=== PATIENT | male | born 1950 | race Caucasian/White ===

== ENCOUNTER 2018-08-02 06:12 | Inpatient (IN) ==
[2018-08-02] MEDS ORDERED: Albuterol 2.5 MG/3 ML NEBULIZER IH ONE (06:32)
[2018-08-02] MEDS ORDERED: CeFAZolin Syr 3,000MG/30 ML 3,000 MG/30 ML SYRINGE IVPB ONE (06:32)
[2018-08-02] MEDS ORDERED: Ringers Solution, Lactated 1,000 ML IVC SCH (06:45)
[2018-08-02] MEDS ORDERED: Lidocaine -MPF 4% 5 ML AMPUL ONE (07:08)
[2018-08-02] MEDS ORDERED: *HR* Propofol 200 MG/20 ML VIAL IVP ONE ×2 (07:15→08:17)
[2018-08-02] MEDS ORDERED: *HR* FentaNYL (PF) 100 MCG/2 ML VIAL ONE (07:15)
[2018-08-02] MEDS ORDERED: *HR* Methadone 10 MG TABLET PO ONE (07:16)
[2018-08-02] MEDS ORDERED: Lidocaine -MPF 2% 2 ML VIAL ONE (07:19)
[2018-08-02] MEDS ORDERED: *HR* Succinylcholine 200 MG/10 ML VIAL IVP ONE (07:19)
[2018-08-02] MEDS ORDERED: Ondansetron 4 MG/2 ML VIAL ONE (07:19)
[2018-08-02] MEDS ORDERED: *HR* Rocuronium Bromide 50 MG/5 ML VIAL ONE (07:19)
[2018-08-02] MEDS ORDERED: Dexamethasone 4 MG/ML VIAL ONE (07:19)
--- NOTE | 2018-08-02 07:19 | Anesthesia Evaluation PreOp ---
Date of Encounter: 08/02/18 Time of Encounter: 07:17 - Past History Planned Operation: PLIF L3-L5 Cardiac History: HTN Pulmonary History: Smoker, COPD, WANG Dx (BIPAP) HERB DOCTOR History: Denies Any Significant HX Other Medical History: Other (MORBID OBESITY) Anesthesia History: Past Anesthesia, Problems (BRONCHOSPASM POST OPERATIVE) Alcohol Use: heavy Drug use: none Medications and Allergies Aspirin 81 mg PO DAILY 11/30/16 [History] Calcium Carbonate/Vitamin D3 [Calcium 500 mg Chewable Tablet] 1 each PO DAILY [History] Losartan/HCTZ [Hyzaar 50-12.5 Tablet] 1 each PO DAILY 11/30/16 [History] Multivitamin [Multivitamins] 1 each PO DAILY 11/30/16 [History] Potassium 99 mg PO DAILY 11/30/16 [History] Trazodone HCl 150 mg PO HS 11/30/16 [History] 3 Allergy/AdvReac Type Severity Reaction Status Date / Time Sulfa (Sulfonamide Allergy Mild Hives Verified 08/02/18 07:19 Antibiotics) Tetracycline Allergy Mild Hives Verified 08/02/18 07:19 escitalopram [From Lexapro] AdvReac HALUCINATIO Verified 08/02/18 07:19 N Iodinated Contrast- Oral and AdvReac Rash Verified 08/02/18 07:19 IV Dye [Iodinated Contrast Media - IV Dye] venlafaxine [From Effexor] AdvReac Hallucinati Verified 08/02/18 07:19 ng - Meds/Allergy Pre-op Review Medications Reviewed: Yes Allergies Reviewed: Yes Beta Blockers on Current Med List: No Anesthesia Results - Labs Laboratory Last Values WBC 6.2 K/mcL (4.3-11.1) 07/11/18 11:22 RBC 5.12 M/mcL (4.19-5.50) 07/11/18 11:22 Hgb 17.7 g/dL (12.9-16.9) H 07/11/18 11:22 Hct 52.0 % (37.5-50.1) H 07/11/18 11:22 MCV 101.6 fL (83.0-100.0) H 07/11/18 11:22 MCH 34.6 pg (28.0-33.3) H 07/11/18 11:22 MCHC 34.0 g/dL (31.6-35.5) 07/11/18 11:22 RDW 12.4 % (11.5-14.5) 07/11/18 11:22 Plt Count 139 K/mcL (140-400) L 07/11/18 11:22 MPV 11.2 fL (9.4-12.4) 07/11/18 11:22 Immature Gran % 0.5 % (0-4) 07/11/18 11:22 Seg Neutrophils % 56.4 % 07/11/18 11:22 Lymphocytes % 25.3 % 07/11/18 11:22 Monocytes % 14.3 % 07/11/18 11:22 Eosinophils % 2.9 % 07/11/18 11:22 Basophils % 0.6 % 07/11/18 11:22 Neutrophils # 3.5 K/mcL (1.6-8.9) 07/11/18 11:22 Lymphocytes # 1.6 K/mcL (0.6-4.6) 07/11/18 11:22 Monocytes # 0.9 K/mcL (0.0-1.3) 07/11/18 11:22 Eosinophils # 0.2 K/mcL (0.0-0.6) 07/11/18 11:22 Basophils # 0.0 K/mcL (0.0-0.2) 07/11/18 11:22 PT 10.8 Seconds (9.4-12.1) 07/11/18 11:22 INR 1.0 07/11/18 11:22 APTT 33.4 Seconds (26.0-36.0) 07/11/18 11:22 Sodium 137 mEq/L (136-145) 07/11/18 11:22 Potassium 4.0 mEq/L (3.5-5.1) 07/11/18 11:22 Chloride 102 mEq/L (98-107) 07/11/18 11:22 Carbon Dioxide 30 mEq/L (23-29) H 07/11/18 11:22 BUN 12 mg/dL (8-23) 07/11/18 11:22 Creatinine 1.07 mg/dL (0.70-1.30) 07/11/18 11:22 Est GFR ( Amer) > 60 (> 60) 07/11/18 11:22 Est GFR (Non-Af Amer) > 60 (> 60) 07/11/18 11:22 BUN/Creatinine Ratio 11 (6-26) 07/11/18 11:22 Anesthesia Exam Vital Signs Temp Pulse Resp BP Pulse Ox 98.3 F 94 18 153/89 94 08/02/18 06:33 08/02/18 06:33 08/02/18 06:33 08/02/18 06:33 08/02/18 06:33 Height 1.75 m Weight 128.367 kg BMI 42 - HEENT Pupil (Motor): Pupils equal Mallampati: II Teeth: Edentulous Denture Type: Upper: Complete, Lower: Complete Oral Opening: Greater than 3 - HERB DOCTOR LOC: Oriented HERB DOCTOR Motor: Normal RUE, Normal LUE, Normal RLE, Normal LLE, Normal Face - Cardiac Rhythm: Regular - Pulmonary Breath Sounds: bilateral Clear Respiratory Effort: Symmetrical Anesthesia Assess/Plan ASA Score: 4 Modified Frances Scale for Level of Consciousness: Cooperative, oriented, and tranquil Anesthetic Plan: General Monitoring Plan: Standard Monitors Recovery Plan: PACU Anes Supervising Prov Stmt: JMB [employer]nergie LIST NOT UPDATED THIS VISIT PATIENT'S CHART AND CURRENT MEDICATIONS REVIEWED
[2018-08-02] MEDS ORDERED: *HR* Remifentanil 1 MG VIAL IVP ONE ×2 (07:21→10:55)
[2018-08-02] MEDS ORDERED: Propofol 500 MG/50 ML INFUS..BTL ONE (07:27)
[2018-08-02] MEDS ORDERED: *HR* Labetalol 100 MG/20 ML MDV IVP PRN (07:28)
[2018-08-02] MEDS ORDERED: MORPHINE SUL Oral CONC 10 MG/0.5 ML ORAL.SYG SL PRN (07:28)
[2018-08-02] MEDS ORDERED: *HR* HYDROmorphone 2 MG TABLET PO PRN (07:28)
[2018-08-02] MEDS ORDERED: *HR* OxyCODONE Immed Rel 5 MG TABLET PO PRN (07:28)
[2018-08-02] MEDS ORDERED: *HR* Promethazine 25 MG/ML VIAL IVP PRN (07:28)
--- NOTE | 2018-08-02 07:40 | History & Physical Report ---
Date of Encounter: 08/02/18 Time of Encounter: 07:40 24 Hour HP Update - Instructions Instructions: If the History and Physical is less than 30 days old and was completed prior to A.M. admission and or procedure and has NOT been updated on calendar day of procedure please complete this update prior to performing procedure. - Update Patient reports changes in Medical Condition: No Changes in examination, assessment, or condition: No Changes in Medication: No Preop tests/diagnostics Reviewed: Yes Pre-Op MRSA Screen: Negative Surgery Remains Indicated: Yes Consent for Planned Operative Procedure(s) Verified: Yes - Pre-Operative Checklist Preoperative Checklist Indicated: No Prophylactic Antibiotic Ordered: Yes Home Medications Include Beta Anurag: No Beta Anurag Taken Today (Day of Surgery): No Beta Anurag Taken Yesterday (Day Prior to Surgery): No Is VTE Prophylaxis Indicated?: Yes
[2018-08-02] MEDS ORDERED: Acetaminophen IV 1,000 MG/100 ML INFUS..BTL ONE (07:43)
[2018-08-02] MEDS ORDERED: Bacitracin 50,000 UNIT, Polymyxin B Sulfate 500,000 UNIT, Sodium Chloride IRRigation 1,... IR ONE (07:45)
[2018-08-02] MEDS ORDERED: *HR* PHENYLEPHRINE 1,000 MCG/10 ML SYRINGE IVP ONE (08:43)
[2018-08-02] MEDS ORDERED: EPHEDrine 50 MG/ML VIAL ONE (08:46)
[2018-08-02] MEDS ORDERED: *HR* Morphine 10 MG/ML VIAL ONE (11:19)
--- NOTE | 2018-08-02 11:42 | Orthopedic Operative Note ---
Date of procedure: 08/02/18 Pre-op diagnosis: Synovial cyst lumbar facet, lumbar stenosis, lumbar radiculopathy Post-op diagnosis: same Operation/Findings: Posterior lumbar interbody fusion L3-L5: The patient successfully underwent general endotracheal anesthesia. The patient was given antibiotics prior to the start of the procedure. Compression boots and stockings were used for deep vein thrombosis prophylaxis. A Romero catheter was placed. Leads for neuro monitoring were placed on the upper and lower extremities. This included the cranium. The neuro monitoring personnel confirmed there were satisfactory readings prior to the start of the procedure. The patient was turned prone on the [place] table. The back was prepped and draped in the usual sterile fashion. An incision was was marked and centered over the involved L3-L5 levels in the mid line. The incision was deepened through the lumbar fascia. Bovie cautery and Murphy elevators were used to reflect the paraspinal musculature at the lateral extent of the transverse processes of the involved L3 , L4, and L5 levels. Radha clamps were placed over the L4 and L5 spinous processes. An intraoperative lateral fluoroscopy graft was obtained. A conversation was held between the surgeon and radiologist and both confirmed we had the correct operative levels. We then placed pedicle screws in standard fashion with the aid of fluoroscopy and anatomic landmarks. Briefly a starter awl was used. A gearshift was subsequently used to enter the elevator pilot hole via a transpedicular route into the vertebral body. The elevator pilot hole was tapped with an undersized instrument, and subsequently six 6.5 x 40 mm pedicle screws were placed bilaterally at the indicated L3, L4, and L5 levels. The screws were tested with the aid of the neurologic monitoring staff via pedicle screw stimulation. All reading suggested there was no significant cortical wall breech. The screws were also evaluated fluoro- graphically and appeared to be in satisfactory position. We then turned our attention to the decompression portion of the procedure. We removed the supraspinous and interspinous ligaments and subsequently the insertion of the ligamentum flavum on the undersurface of the proximal L4 lamina was dislodged with a curette. We then removed the ligamentum flavum as well as undercut the L4-L5 facets at this L4- L5 level to decompress the lateral recesses. We also performed a L4 laminectomy. We then proceeded proximally to the L3-4 level and again removed hypertrophied ligamentum flavum, undercut the L3-4 facets, did partial medial facetectomies at L3-4, and performed a partial L3 laminectomy. After the decompression, which was over and above that which was required to place the interbody graft, the foramen and traversing roots at the L3-4 and L4-5 levels were found to be free and patent. We also took part of the medial facets at L3- 4 and L4-5 in order to aid in the decompression. We then protected the neural elements including the thecal sac and traversing nerve root on the left with a dural retractor. We made an annulotomy into the L4-L5 disc space and then removed entire disc material using Pituitary instruments. We trialed various size grafts after the endplates were prepared for graft insertion. A 10 x 26 enter body graft fit well within the L4-L5 disc space. We obtained some bone from the left posterior superior iliac spine through us a separate incision and combined with this with the bone which we had saved from the laminectomies portion of the procedure. This autograft bone was first placed in the anterior portion of the L4-L5 disc space and additional bone was placed within the interbody graft spacer. We then placed the interbody graft spacer obliquely across the L4-L5 disc space towards the midline while protecting the neural elements with a root retractor. When the graft was found to be in satisfactory position the engineering technical writer was removed. We then turned our attention to the interbody placement at L3-4. At this level we approach from the right. We used a dural retractor to protect the neural elements. We made an annulotomy into the L3-L4 disc space. Entire disc material was removed from this level. We trialed various size grafts and a 10 x 26 mm spacer fit well within the disc space. We then packed the anterior portion of the L3-L4 disc space with autograft bone. We then placed bone within an interbody cage, and while protecting the neural elements with a dural retractor, placed the interbody graft/cage obliquely across the L3-4 disc space towards the midline. When found to be in satisfactory position the engineering technical writer was removed. We then copiously irrigated the wound. We then decorticated the L3, L4, and L5 transverse processes as well as the L3-4 and L4-5 facet joints of the involved L3, L4, and L5 levels to aid in the posterolateral fusion. We placed autograft bone in the lateral gutters over these regions. We then placed rods within the screw heads of the involved L3, L4, and L5 levels and first locked the distal screws and then subsequently locked the proximal screws so as to improve and reduce the spondylolisthesis previously seen. We then closed the wound in layers with 1 Vicryl for the fascia, 2-0 Vicryl. Subcutaneous tissue, and Dermabond was used for skin closure. Sterile dressings were placed over the wound. The patient was turned supine on a hospital bed and extubated. All sponge instruments and needle counts were correct at the end of the procedure. The patient tolerated the procedure well without complications. Anesthesia: GETA Surgeon: Jabier Kingsley Jr Was there an business assistant present: No Estimated blood loss (cc): 200 Specimen: None Condition: stable Disposition: PACU
--- NOTE | 2018-08-02 12:26 | Anesthesia Evaluation Post Op ---
Date of Encounter: 08/02/18 Time of Encounter: 12:25 - Vital Signs Vital Signs: Vital Signs/O2 Sat/Glucose, Most Recent Temp Pulse Resp BP Pulse Ox 98.5 F 101 12 152/87 94 08/02/18 12:20 08/02/18 12:20 08/02/18 12:20 08/02/18 12:20 08/02/18 12:20 - Lungs Lungs: Clear Ascult./Percussion - Airway Airway: Non-obstructed - Cardiovascular Regular Rate - Mental Status Mental Status: Alert & Oriented, Answers Appropriately - Pain Pain Scale used: Donovan (Faces) - Nausea Vomiting Nausea Vomiting: Not Present - Hydration Hydration: Tolerates oral liquids - Discharge PostOp Status: Transfer Patient to floor
[2018-08-02] MEDS ORDERED: TESTOSTERONE CYPIONATE IM SCH (12:52)
[2018-08-02] MEDS ORDERED: Acetaminophen 325 MG TABLET PO PRN (12:52)
[2018-08-02] MEDS ORDERED: Ondansetron 4 MG/2 ML VIAL IVP PRN (12:52)
[2018-08-02] MEDS ORDERED: Fluticasone Propionate Nasal 50 MCG/SPRAY BOTTLE NS PRN (12:52)
[2018-08-02] MEDS ORDERED: Naloxone 0.4 MG/ML INJ IVP PRN (12:52)
[2018-08-02] MEDS ORDERED: Cyanocobalamin (B-12) 1,000 MCG/ML VIAL IM SCH (12:52)
[2018-08-02] MEDS: *HR* HYDROcodone/Acet 5/325 mg TABLET PO PRN ×2 (14:21→21:17)
[2018-08-02] MEDS: *HR* OxyCODONE Immed Rel 5 MG TABLET PO PRN (17:08)
[2018-08-02] MEDS: Ringers Solution, Lactated 1,000 ML IVC SCH ×2 (17:09→23:55)
[2018-08-02] MEDS: traZODone 50 MG TABLET PO SCH (21:16)
[2018-08-03] MEDS: *HR* OxyCODONE Immed Rel 5 MG TABLET PO PRN ×4 (00:49→20:56)
[2018-08-03] MEDS: *HR* HYDROcodone/Acet 5/325 mg TABLET PO PRN ×2 (03:48→10:40)
[2018-08-03] MEDS: Aspirin 81 MG TAB.CHEW PO SCH (08:50)
[2018-08-03] MEDS: Losartan/HCTZ 50-12.5 TABLET PO SCH (08:50)
[2018-08-03] MEDS: Multivit/Ca/Min/Fe/FA 1 TAB TABLET PO SCH (08:50)
[2018-08-03] MEDS ORDERED: Temazepam 15 MG CAPSULE PO PRN (10:01)
[2018-08-03] MEDS ORDERED: Cyanocobalamin (B-12) 1,000 MCG/ML VIAL IM SCH (12:52)
[2018-08-03] MEDS: traZODone 50 MG TABLET PO SCH (23:55)
[2018-08-04] MEDS: *HR* OxyCODONE Immed Rel 5 MG TABLET PO PRN ×2 (05:39→14:35)
--- NOTE | 2018-08-04 07:02 | Orthopedics Progress Note ---
Date of Encounter: 08/04/18 Time of Encounter: 07:00 Subjective Interval history: S: Resting in bed comfortably; Pain and much better control last night O: Afebrile on the vital signs are stable Lumbar dressing is clean, dry, and intact Neurovascularly intact to the bilateral upper and lower extremities A: Posterior lumbar interbody fusion, L3-L5 P: Resume postoperative care Physical therapy Anticipate nursing home facility/swing bed rehabilitation, possibly tomorrow. Objective Vital signs: Vital Signs Temp Pulse Resp BP Pulse Ox 08/04/18 00:07 98.0 F 90 16 131/79 95 08/03/18 21:17 98.1 F 89 16 112/68 97 08/03/18 15:02 98.9 F 80 17 120/71 96 08/03/18 07:31 98.0 F 76 16 117/73 95 Intake and Output 08/03/18 08/03/18 08/04/18 15:59 23:59 07:59 Intake Total 900 / 900 Output Total 200 / 200 Balance 900 / 900 -200 / -200 Intake: IV Fluids 900 / 900 Lactated Ringers 1,000 ML @ 100 900 / 900 mls/hr IVC .Q10H [facility] Rx#: [id number] Output: Urine 200 / 200 Other: # Voids 1 - VTE Documentation of Mechanical Device: Intermittent pneumatic compression device Consult Discharge Plan - Plan Referrals: Ally Bourne MD [Primary Care Provider] -
[2018-08-04] MEDS: Aspirin 81 MG TAB.CHEW PO SCH (08:32)
[2018-08-04] MEDS: Multivit/Ca/Min/Fe/FA 1 TAB TABLET PO SCH (08:32)
[2018-08-04] MEDS: Losartan/HCTZ 50-12.5 TABLET PO SCH (08:32)
[2018-08-04] MEDS: *HR* HYDROcodone/Acet 5/325 mg TABLET PO PRN ×2 (08:41→21:02)
[2018-08-04] MEDS: MOM Conc 10 ML UD.LIQ PO PRN (21:02)
[2018-08-04] MEDS: traZODone 50 MG TABLET PO SCH (23:02)
[2018-08-05] MEDS: MOM Conc 10 ML UD.LIQ PO PRN (05:09)
[2018-08-05] MEDS: *HR* HYDROcodone/Acet 5/325 mg TABLET PO PRN (05:09)
[2018-08-05 06:44] VITALS: BP 138/76
[2018-08-05] MEDS: Multivit/Ca/Min/Fe/FA 1 TAB TABLET PO SCH (09:32)
[2018-08-05] MEDS: *HR* OxyCODONE Immed Rel 5 MG TABLET PO PRN (09:32)
[2018-08-05] MEDS: Losartan/HCTZ 50-12.5 TABLET PO SCH (09:32)
[2018-08-05] MEDS: Aspirin 81 MG TAB.CHEW PO SCH (09:32)
--- NOTE | 2018-08-05 10:16 | Orthopedics Progress Note ---
Date of Encounter: 08/05/18 Time of Encounter: 10:15 Subjective Interval history: S: Resting in bed comfortably; O: Afebrile on the vital signs are stable Lumbar dressing is clean, dry, and intact Neurovascularly intact to the bilateral upper and lower extremities A: Posterior lumbar interbody fusion, L3-L5 P: Resume postoperative care Discharge today Objective Vital signs: Vital Signs Temp Pulse Resp BP Pulse Ox 08/05/18 06:40 98.3 F 87 16 138/76 96 08/04/18 23:25 98.6 F 84 17 140/84 94 08/04/18 19:13 98.9 F 97 17 168/92 94 08/04/18 16:46 99.4 F 109 20 158/92 90 08/04/18 11:39 97.7 F 82 18 123/76 97 Intake and Output 08/04/18 08/05/18 08/05/18 23:59 07:59 15:59 Other: # Voids 1 Weight 129.8 kg Patient Weight 08/05/18 23:59 Weight 129.8 kg - VTE Documentation of Mechanical Device: Intermittent pneumatic compression device Consult Discharge Plan - Plan Referrals: Ally Bourne MD [Primary Care Provider] -
--- NOTE | 2018-08-09 16:25 | Discharge Summary ---
- NOTES TO OUTPATIENT PROVIDER Notes to Outpatient Provider: Follow-up in 2 weeks in spine Center Orders not resulted at time of discharge: Pending orders 08/02/18 08:35 XR fluoroscopy <1 hr [XR] Routine Date of Encounter: 08/09/18 Time of Encounter: 16:24 - Discharge Diagnosis (1) Lumbar stenosis Priority: Primary Status: Chronic Qualifiers: Neurogenic claudication status: without neurogenic claudication Qualified Code(s): M48.061 - Spinal stenosis, lumbar region without neurogenic claudication (2) Lumbar radiculopathy Priority: Secondary Status: Chronic (3) Synovial cyst of lumbar facet joint Priority: Secondary Status: Chronic - Hospital Course Hospital course: Mr. Mccullough is a 68 year old male The patient had an uneventful postoperative course. Progressed from intravenous analgesic needs to oral analgesic needs only. Remained neurovascularly intact and mobilized satisfactorily. All intraoperative and/or postoperative radiographic studies were satisfactory. Patient is discharged with plan for rehabilitation and follow-up in 2 weeks post discharge on analgesic medication and patient's home medications. - Time Spent with Patient Total time spent providing and/or coordinating discharge services: - Discharge Medications Home Medications: Aspirin 81 mg PO DAILY 11/30/16 [History] Losartan/HCTZ [Hyzaar 50-12.5 Tablet] 1 each PO DAILY 11/30/16 [History] Albuterol Sulfate [Ventolin Hfa] 2 puff IH Q4H PRN 08/02/18 [History] Calcium Carbonate [Calcium] 600 mg PO DAILY 08/02/18 [History] Cyanocobalamin (B-12) [Vitamin B12] 1,000 mcg IM Q2W 08/02/18 [History] Fluticasone Propionate Nasal [Flonase] 1 spray NS BID PRN 08/02/18 [History] Montelukast [Singulair] 10 mg PO DAILY 08/02/18 [History] OxyCODONE/APAP 5/325 [Percocet 5/325 MG] 1 each PO Q6HR PRN 08/02/18 [History] Potassium Gluconate [Potassium] 600 mg PO DAILY 08/02/18 [History] Vit No.129/Iron/FA [ One Daily Tablet] 1 tab PO DAILY 08/02/18 [History] Testosterone Cypionate [DEPO-Testosterone] 0.75 ml IM Q2W 08/02/18 [History] Trazodone HCl 200 mg PO HS 08/02/18 [History] hydrOXYzine HCl [Hydroxyzine HCl] 25 - 50 mg PO TID PRN 08/02/18 [History] Allergies/Adverse Reactions: 3 Allergy/AdvReac Type Severity Reaction Status Date / Time Sulfa (Sulfonamide Allergy Mild Hives Verified 08/02/18 07:19 Antibiotics) Tetracycline Allergy Mild Hives Verified 08/02/18 07:19 escitalopram [From Lexapro] AdvReac HALUCINATIO Verified 08/02/18 07:19 N Iodinated Contrast- Oral and AdvReac Rash Verified 08/02/18 07:19 IV Dye [Iodinated Contrast Media - IV Dye] venlafaxine [From Effexor] AdvReac Hallucinati Verified 08/02/18 07:19 ng Date of admission: 08/02/18 12:46 Primary care physician: Ally Bourne MD Consults: 08/02/18 12:52 Consult to Occupational Therapy [CONS] Routine Comment: Evaluate, develop and implement POC Reason for Consult: Postoperative rehabilitation Does patient have active BEDREST order?: No Is patient medically & hemodynamically stable?: Yes Patient assessed for mobility or mobilized this visit?: No Consult to Physical Therapy [CONS] Routine Comment: Evaluate, develop and implement POC Reason for Consult: Postoperative rehabilitation Does patient have active BEDREST order?: No Is patient medically & hemodynamically stable?: Yes Patient assessed for mobility or mobilized this visit?: No Consult to Principal Military Analyst [CONS] Routine Reason for SW Consult: Postoperative rehabilitation placement Consult to Spine Navigator [CONS] [CONS] Routine - VTE Documentation of Mechanical Device: Intermittent pneumatic compression device - Impressions ITS Impressions Lumbar Spine X-Ray 08/02/18 08:35 IMPRESSION: Posterior spinal fusion and discectomy L3 through L5 without complication. D/ / 08/02/2018 13:33:08 Richardson Novak MD / [email or web address] Interpreting Provider: Richardson Novak MD Lumbar Spine X-Ray 08/04/18 09:00 IMPRESSION: Postsurgical changes seen related to posterior spinal fusion and discectomy at L3 through L5, without acute hardware complication or osseous fracture identified. Multiple gas-filled loops of small and large bowel are identified with some colonic distention which may be related to postoperative ileus. D/ / Thad Saucedo MD / Thad Saucedo MD Interpreting Provider: Thad Saucedo MD - Patient Status Disposition: Home Health Service Condition: Good Overall status at discharge: patient is progressing back to baseline - Discharge Instructions Follow Up With: Mony Conteh PAC [Physician Jet Handler] - 08/15/18 9:30 am Jabier Kingsley Jr, MD [Partnered Physician] - 11/02/18 11:15 am Ally Bourne MD [Primary Care Provider] - Additional Instructions: Discharge Instructions: Lumbar Please call [facility] ([phone]), your Primary Care Physician, or report to the ER if you have any of the following symptoms: Fever greater that 101.5, increased pain/redness/drainage/odor for your incision site or any other concerning symptoms. ACTIVITY * May Shower * No Tub Baths * No lifting greater than 10 pounds * No Smoking * No Swimming * No off Ground Activities (Running, Climbing, Ladders, Horseback Riding) * No Driving * Wear Back Brace when up walking if lumbar fusion done * Incentive Spirometer 10 times an hour MEDICATIONS: Upon discharge resume your home medications. Take all the medications as prescribed. Take a stool softener if taking narcotic pain medications. Stool softeners are only effective if you drink enough fluids. Drink 6-8 glass of water or fluids a day, unless this is not allowed for another health problem. Despite using stool softeners, if you haven't had a bowel movement in 3 days, please switch to a gentle laxative. Gentle laxatives are sold over the counter. You should have a bowel movement within 24 hours, if not call the office. You will be discharged from the hospital with a prescription for pain medication. You are encouraged to decrease the use of narcotic pain medication as tolerated. Should you require a refill, please call the office. It is best to call 48-72 hours in advance of needing a prescription refill so you don't run out of medication. WOUND CARE: Remove Dressing Tomorrow. Leave incision open to air. Pat dry when you get out of the shower. FOLLOW-UP: Please follow up with your surgeon in the orthopedic clinic in 2 weeks from the day of surgery. References: [place] [employer] ([email or web address]) - Diet and Activity Activity: as per physical therapy Diet: advance to your usual diet
== END 2018-08-05 12:01 | disposition home health service (06) | DRG 454 ==
LOC: SAMDAY 06:12 → 3NENU 12:46
PROVIDERS: ADMIT Orthopaedic Surgery Orthopaedic Surgery of the Spine; ATTEND Orthopaedic Surgery Orthopaedic Surgery of the Spine

== ENCOUNTER 2018-11-14 11:32 | Observation (INO) ==
--- NOTE | 2018-11-14 12:05 | Emergency Department Note ---
Disposition Clinical Impression: Deep vein thrombosis (DVT) of left lower extremity Qualifiers: Affected thrombotic vein of extremity: tibial Chronicity: acute Qualified Code(s): I82.442 - Acute embolism and thrombosis of left tibial vein Disposition: Admitted As Inpatient Condition: Fair Referrals: Ally Bourne MD [Primary Care Provider] - Forms: ED Satisfaction Letter, Work/School Release Time of Disposition: 13:11 General Adult HPI - General Chief complaint: ED General Medical Stated complaint: Positive DVT Arm/Leg Time Seen by Provider: 11/14/18 11:39 Source: patient Mode of arrival: ambulatory Limitations: no limitations Nursing Notes Reviewed: Yes Vital Signs Reviewed: Yes - History of Present Illness HPI Narrative: Patient presents to the ED with a chief complaint of a DVT. Patient states he has a DVT in his left upper arm and his left calf. He had Dopplers done last night that were positive. He was sent in today because he states they could not get a hold of his PCP last night. No history of DVT. He did have a recent back surgery in July and just got out of his brace last week. Denies any recent travel. Denies any history of cancer. No personal or family history of DVTs. He denies any chest pain or difficulty breathing today. He does have some pain in his left arm. He states his been there for a week and he was treated for cellulitis. When it did not resolve they were at the Doppler. Pain Scale: 6 - Related Data Home Medications Medication Instructions Recorded Confirmed Aspirin 81 mg PO DAILY 11/30/16 08/02/18 Losartan/HCTZ [Hyzaar 50-12.5 1 each PO DAILY 11/30/16 08/02/18 Tablet] Albuterol Sulfate [Ventolin Hfa] 2 puff IH Q4H PRN 08/02/18 08/02/18 Calcium Carbonate [Calcium] 600 mg PO DAILY 08/02/18 08/02/18 Cyanocobalamin (B-12) [Vitamin B12] 1,000 mcg IM Q2W 08/02/18 08/02/18 Fluticasone Propionate Nasal 1 spray NS BID PRN 08/02/18 08/02/18 [Flonase] Montelukast [Singulair] 10 mg PO DAILY 08/02/18 08/02/18 OxyCODONE/APAP 5/325 [Percocet 1 each PO Q6HR PRN 08/02/18 08/02/18 5/325 MG] Potassium Gluconate [Potassium] 600 mg PO DAILY 08/02/18 08/02/18 Vit No.129/Iron/FA 1 tab PO DAILY 08/02/18 08/02/18 [ One Daily Tablet] Testosterone Cypionate 0.75 ml IM Q2W 08/02/18 08/02/18 [DEPO-Testosterone] Trazodone HCl 200 mg PO HS 08/02/18 08/02/18 hydrOXYzine HCl [Hydroxyzine HCl] 25 - 50 mg PO TID PRN 08/02/18 08/02/18 Allergies Allergy/AdvReac Type Severity Reaction Status Date / Time Sulfa (Sulfonamide Allergy Mild Hives Verified 11/14/18 11:53 Antibiotics) tetracycline [Tetracycline] Allergy Mild Hives Verified 11/14/18 11:53 escitalopram [From Lexapro] AdvReac HALUCINATIO Verified 11/14/18 11:53 N Iodinated Contrast- Oral and AdvReac Rash Verified 11/14/18 11:53 IV Dye [Iodinated Contrast Media - IV Dye] venlafaxine [From Effexor] AdvReac Hallucinati Verified 11/14/18 11:53 ng All systems ED: reviewed and negative except as stated. Constitutional: Denies: fever Cardiovascular: Denies: chest pain Respiratory: Denies: dyspnea Gastrointestinal: Denies: abdominal pain Past Medical History - Past Medical History Attestation: Yes The following information was validated with the patient. Source: patient Medical history: Reports: cancer, COPD, hypertension, kidney stones Surgical history: Reports: colectomy, herniorrhaphy, orthopedic, other Psychiatric history: Reports: anxiety, depression - Social History Smoking Status: Current every day smoker Smokeless Tobacco Status: No Alcohol use: Reports: heavy Drug use: Reports: none Physical Exam Patient awake and alert sitting up in bed in no acute distress. Heart regular rate and rhythm and lungs clear. He is noted to have a moderate amount of swelling to the inner portion of the left upper arm. He also has 3+ pitting edema to the left lower extremity. - General Limitations: no limitations - Head Head exam: atraumatic, normocephalic, normal inspection - Eye Eye exam: Present: normal appearance, PERRL - ENT ENT exam: normal exam - Neck Neck exam: Present: normal inspection - Chest Chest inspection: Present: normal inspection - Respiratory Respiratory exam: Present: normal lung sounds bilaterally. Absent: accessory muscle use - Cardiovascular Cardiovascular exam: Present: regular rate, normal rhythm, normal heart sounds - Neurological Exam Neurological exam: Present: alert, oriented X3 - Psychiatric Psychiatric exam: Present: normal affect - Skin Skin exam: Present: warm, dry, intact Course - Reevaluation(s) Reevaluation #1: Case discussed with vascular seasonal customer service associate Dr. Dunn. Recommends admission for anticoagulation. Time: 12:54 - Consultations Consultation #1: excepts for admission. Time: 13:11 Vital Signs Temperature 99.5 F 11/14/18 11:51 Pulse Rate 94 11/14/18 11:51 Respiratory Rate 18 11/14/18 11:51 Blood Pressure 147/105 11/14/18 11:51 O2 Sat by Pulse Oximetry 95 11/14/18 11:51 Temperature 99.5 F 11/14/18 11:56 Pulse Rate 94 11/14/18 11:56 Respiratory Rate 18 11/14/18 11:56 Blood Pressure 147/105 11/14/18 11:56 O2 Sat by Pulse Oximetry 95 11/14/18 11:56 Oxygen Delivery Oxygen Delivery Room Air Medical Decision Making - [facility] Narrative Medical decision making narrative: Discussed with vascular who recommends admission for anticoagulation. Patient hemodynamically stable. Requesting lunch tray and pain meds. - Lab Data Lab results reviewed: Yes I reviewed the patient's lab results. Result diagrams: 11/14/18 12:06 11/14/18 12:06 Lab Results 11/14/18 11/14/18 11/14/18 Range/Units 12:06 12:06 12:06 WBC 6.6 (4.3-11.1) K/mcL RBC 4.91 (4.19-5.50) M/mcL Hgb 16.6 (12.9-16.9) g/dL Hct 48.6 (37.5-50.1) % MCV 99.0 (83.0-100.0) fL MCH 33.8 H (28.0-33.3) pg MCHC 34.2 (31.6-35.5) g/dL RDW 12.6 (11.5-14.5) % Plt Count 177 (140-400) K/mcL MPV 9.2 L (9.4-12.4) fL PT 10.6 (9.4-12.1) Seconds INR 0.9 Heparin Anti-Xa, Unfract 0.02 L (0.30-0.70) IU/mL Sodium 143 (136-145) mEq/L Potassium 4.1 (3.5-5.1) mEq/L Chloride 108 H (98-107) mEq/L Carbon Dioxide 27 (23-29) mEq/L BUN 5 L (8-23) mg/dL Creatinine 0.77 (0.70-1.30) mg/dL Est GFR ( Amer) > 60 (> 60) Est GFR (Non-Af Amer) > 60 (> 60) BUN/Creatinine Ratio 6 (6-26) Glucose 99 (70-105) mg/dL Calculated Osmolality 293 (280-300) Calcium 8.7 (8.6-10.3) mg/dL - Radiology Data Radiology results reviewed: Yes I reviewed the patient's radiology results. - EKG Data EKG #1 EKG attestation: Yes I reviewed and interpreted this EKG. EKG results narrative: EKG normal sinus at 73. Normal axis. Normal ST segments. Normal QRS complexes. Unchanged from EKG in June. Critical Care Time Critical Care Time: Yes Total Critical Care Time: 35 Attestation: Critical care performed: Time is exclusive of separately billable procedures. Time includes: direct pat ient care, patient reassessment, coordination of patient care, interpretation of data (laboratory data, radiology data, and respiratory data), review of patient's medical records, medical consultation and documentation of patient care. Procedures included in critical care time: Procedures excluded from critical care time:
[2018-11-14 12:26] LABS: Hematocrit 48.6 % (37.5-50.1); Hemoglobin 16.6 g/dL (12.9-16.9); Mean Corpuscular HGB Conc 34.2 g/dL (31.6-35.5); Mean Corpuscular Hemoglobin 33.8 pg (28.0-33.3); Mean Platelet Volume 9.2 fL (9.4-12.4); Platelet Count 177 K/mcL (140-400); Red Blood Count 4.91 M/mcL (4.19-5.50); Red Cell Distribution Width 12.6 % (11.5-14.5)
[2018-11-14 12:38] LABS: Heparin anti-factor XA UFH 0.02 IU/mL (0.30-0.70); INR 0.9; Prothrombin Time 10.6 Seconds (9.4-12.1)
[2018-11-14 12:40] LABS: BUN/Creatinine Ratio 6 (6-26); Blood Urea Nitrogen 5 mg/dL (8-23); Calcium 8.7 mg/dL (8.6-10.3); Carbon Dioxide 27 mEq/L (23-29); Chloride 108 mEq/L (98-107); Glucose 99 mg/dL (70-105); Osmolality,Calculated 293 (280-300); Potassium 4.1 mEq/L (3.5-5.1); Sodium 143 mEq/L (136-145); eGFR For Non-African Americans > 60 (> 60)
[2018-11-14] MEDS ORDERED: *HR* Heparin 5,000 UNIT/ML VIAL IVP PRN ×2 (12:48)
[2018-11-14] MEDS ORDERED: *HR* Heparin 5,000 UNIT/ML VIAL IVP ONE (12:48)
[2018-11-14] MEDS ORDERED: *HR* FentaNYL (PF) 100 MCG/2 ML VIAL IVP ONE (12:54)
[2018-11-14] MEDS: Heparin 25,000 UNIT/500 ML D5W 25,000 UNIT/500 ML BAG IVC SCH (13:36)
[2018-11-14] MEDS ORDERED: Naloxone 0.4 MG/ML INJ IVP PRN (13:45)
[2018-11-14] MEDS ORDERED: traMADol 50 MG TABLET PO PRN (13:45)
[2018-11-14] MEDS ORDERED: Acetaminophen 325 MG TABLET PO PRN (13:45)
[2018-11-14] MEDS ORDERED: Cyanocobalamin (B-12) 1,000 MCG/ML VIAL IM SCH (14:00)
--- NOTE | 2018-11-14 14:03 | Internal Med History&Physical ---
Date of Encounter: 11/14/18 Time of Encounter: 13:20 Internal Medicine - H&P: HPI Chief complaint: L UE/LE DVT Admitted From: Home History of present illness: Mr. Mccullough is a 68 year old male with past medical history of hypertension, COPD, tobacco abuse, remote history of bladder cancer in remission for 11 years, recent L3-5 lumbar fusion in 07/2018, presented to the ED with left upper limb swelling and left leg pain. He was being treated for left upper limb cellulitis per PCP but also underwent doppler study yesterday to rule out DVT. Patient reports that he only had preliminary report yesterday but finally got to verify the result with his PCP this morning who prompted him to come to the ED for further evaluation. He did not have any recent PICC line insertion. No prolonged travel history or immobilization. Denies any chest pain, shortness of breath, palpitation, or hemoptysis. No abdominal pain, change in bowel habits, or dysuria. No joint pain/rash. In the ED, he was afebrile and hemodynamically stable. Labs were unremarkable. Doppler report from yesterday reviewed: acute left basilic vein DVT and left posterior tibial vein thrombus noted. EKG did not show any signs of right heart strain. He was started on heparin drip and admitted for further management. Past Med Surg Social Fam HX - Past Medical History Medical history: cancer, COPD, hypertension, kidney stones Additional medical history: diverticulosis. WANG. IBS Psychiatric history: anxiety, depression - Past Surgical History Surgical History: colectomy, herniorrhaphy, orthopedic, other Additional surgical history: gastric bypass - prostatectomy - colonoscopy, R Knee - Social History Smoking Status: Current every day smoker Smokeless Tobacco Status: No Alcohol use: heavy Drug use: none - Family History Father Living Status: Hx Family Cardiac Disorders: Yes Hx Family Cancer: Yes Mother Living Status: Hx Family Cardiac Disorders: Yes Internal Medicine - H&P: Meds Aspirin 81 mg PO DAILY 11/30/16 [History] Losartan/HCTZ [Hyzaar 50-12.5 Tablet] 1 each PO DAILY 11/30/16 [History] Albuterol Sulfate [Ventolin Hfa] 2 puff IH QAM 08/02/18 [History] Calcium Carbonate [Calcium] 600 mg PO DAILY 08/02/18 [History] Cyanocobalamin (B-12) [Vitamin B12] 1,000 mcg IM Q2W 08/02/18 [History] Fluticasone Propionate Nasal [Flonase] 1 spray NS DAILY 08/02/18 [History] Potassium Gluconate [Potassium] 600 mg PO DAILY 08/02/18 [History] Vit No.129/Iron/FA [ One Daily Tablet] 1 tab PO DAILY 08/02/18 [History] Testosterone Cypionate [DEPO-Testosterone] 0.75 ml IM Q2W 08/02/18 [History] Trazodone HCl 200 mg PO HS 08/02/18 [History] hydrOXYzine HCl [Hydroxyzine HCl] 25 mg PO DAILY 08/02/18 [History] Azithromycin 250 mg PO DAILY 11/14/18 [History] FLUoxetine HCl [PROzac] 20 mg PO DAILY 11/14/18 [History] Furosemide [Lasix] 40 mg PO DAILY 11/14/18 [History] Oxycodone HCl [Roxybond] 5 mg PO Q6H PRN 11/14/18 [History] Allergy/AdvReac Type Severity Reaction Status Date / Time Sulfa (Sulfonamide Allergy Mild Hives Verified 11/14/18 11:53 Antibiotics) tetracycline [Tetracycline] Allergy Mild Hives Verified 11/14/18 11:53 escitalopram [From Lexapro] AdvReac HALUCINATIO Verified 11/14/18 11:53 N Iodinated Contrast- Oral and AdvReac Rash Verified 11/14/18 11:53 IV Dye [Iodinated Contrast Media - IV Dye] venlafaxine [From Effexor] AdvReac Hallucinati Verified 11/14/18 11:53 ng All Systems PM: A 10-system review of systems was performed and is negative for pertinent findings except as documented above in the HPI. - Constitutional Vitals: Temp Pulse Resp BP Pulse Ox 99.5 F 92 16 149/95 94 11/14/18 11:56 11/14/18 13:34 11/14/18 13:34 11/14/18 13:34 11/14/18 13:34 Exam: General: Alert and oriented, not in acute distress. HEENT:EOM, pupils equal, round and reactive. Cardiovascular:Normal S1 & S2, No JVD. Pulse regular. Lungs: clear to auscultation, no wheezes/rales Abdomen:Soft, non-tender, no rigidity. Extremities: LUE swelling noted, more prominent on medial aspect associated with areas of erythema, non-tender. L calf also slightly more swollen than the right. Neurological:Normal cognition and motor skills. Non-focal Skin:Normal color, no rash, no lesions. Pulses:Carotid and radial pulses normal +2. Rest of the physical exam is non contributory Internal Med - H&P Results - Labs CBC & Chem 7: 11/14/18 12:06 11/14/18 12:06 Labs: Short CBC 11/14/18 Range/Units 12:06 WBC 6.6 (4.3-11.1) K/mcL Hgb 16.6 (12.9-16.9) g/dL Hct 48.6 (37.5-50.1) % Plt Count 177 (140-400) K/mcL BMP 11/14/18 12:06 Sodium 143 Potassium 4.1 Chloride 108 H Carbon Dioxide 27 BUN 5 L Creatinine 0.77 Glucose 99 Calcium 8.7 - Assessment and plan (1) Deep vein thrombosis (DVT) of left lower extremity Current Visit: Yes Status: Acute Assessment and plan: Underwent Doppler study yesterday which showed findings as above Risk factors include concurrent use of testosterone 3 months out of lumbar surgery, unlikely to be related to current episode of DVT started on heparin gtt, continue vascular surgery consulted in the ED, follow up on recs no signs and symptoms suggestive of PE if remains stable overnight, will transition to oral anticoagulant and discharge home tomorrow Qualifiers: Affected thrombotic vein of extremity: tibial Chronicity: acute Qualified Code(s): I82.442 - Acute embolism and thrombosis of left tibial vein (2) Deep vein thrombosis of left upper extremity Current Visit: Yes Status: Acute Assessment and plan: As above hold abx as the findings on his LUE is consistent with DVT rather than infectious cause Qualifiers: Affected thrombotic vein of extremity: other upper extremity vein Chronicity: acute Qualified Code(s): I82.622 - Acute embolism and thrombosis of deep veins of left upper extremity (3) HTN (hypertension) Current Visit: No Status: Chronic Assessment and plan: Resume home meds Qualifiers: Hypertension type: essential hypertension Qualified Code(s): I10 - Essen tial (primary) hypertension (4) COPD (chronic obstructive pulmonary disease) Current Visit: No Status: Chronic Assessment and plan: Not in exacerbation, resume home inhalers Qualifiers: COPD type: unspecified COPD Qualified Code(s): J44.9 - Chronic obstructive pulmonary disease, unspecified (5) Smoker Current Visit: Yes Status: Acute Assessment and plan: Continues to smoke a pack a day Counseling provided Declines nicotine replacement therapy - Time Spent With Patient Total time spent is greater than 50% in coordination of care (as documented) at patient's floor/unit and/or counseling patient:
--- NOTE | 2018-11-14 17:10 | Vascular/Endovasc Consult Note ---
Date of Encounter: 11/14/18 Time of Encounter: 17:05 Assessment and Plan (1) Superficial thrombophlebitis of left upper extremity Current Visit: Yes Status: Acute Patient has acute thrombosis of left basilic vein. There is no obvious etiology for this thrombosis and he denies an IV being placed in this area nor has there been any any other type of extrinsic trauma. As this is a superficial process I recommended conservative efforts with elevation and heat. (2) Deep vein thrombosis (DVT) of left lower extremity Current Visit: Yes Status: Acute Patient has an acute DVT of the left posterior tibial vein. Patient has had a week or more of symptoms and swelling of the left lower extremity. Again there been no obvious extrinsic etiology for the DVT. There is a family history asso ciated with his sons having DVTs and pulmonary emboli and his use of tobacco and testosterone supplement. Patient may be an appropriate candidate for consultation with hematology for thrombophilia workup. Qualifiers: Affected thrombotic vein of extremity: tibial Chronicity: acute Qualified Code(s): I82.442 - Acute embolism and thrombosis of left tibial vein - History of Present Illness Consult date: 11/14/18 Consult reason: Left lower extremity DVT --left upper extremity phlebitis Chief complaint: Left arm swelling and left leg pain History of present illness: Mr. Mccullough is a 68 year old male Who was admitted this morning via the emergency room. The patient states that approximately 9 days ago he began having swelling in the left upper extremity. This occurred without any provocative event. He had been hospitalized in July for spine surgery but he denies having any IVs placed in this area. He denies any trauma to the arm or any unusual activities with his upper extremities. He was treated with oral antibiotics beginning first with Keflex and then transitioning to a Z-Parviz by his primary care physician Dr. Aponte. Patient states that the redness has significantly improved but that the swelling has not. 8 days ago the patient began having discomfort and swelling in his left leg. The patient now describes this as a persistent and constant burning sensation in the calf. He states that the lower extremity swelling has been stable and that it does not improve overnight after sleeping. Again he denies any history of trauma or previous lower extremity DVTs or superficial thrombophlebitis episodes. Of note the patient is on testosterone supplement and is a tobacco user. In addition to this he tells me that his 2 adult sons have had a previous episode of lower extremity DVT with pulmonary embolism. He is unsure as to whether this was formally worked up with a hematology consult or if any coagulopathy had been identified in his adult children. The patient was placed on intravenous heparin in the emergency room earlier today and he continues on the intravenous heparin at the time of my interview. Past Med Surg Social Fam HX - Past Medical History Medical history: cancer, COPD, hypertension, kidney stones Additional medical history: diverticulosis. WANG. IBS Psychiatric history: anxiety, depression - Past Surgical History Surgical History: colectomy, herniorrhaphy, orthopedic, other Additional surgical history: gastric bypass - prostatectomy - colonoscopy, R Knee - Social History Smoking Status: Current every day smoker Packs per day: 1 Smokeless Tobacco Status: No Alcohol use: heavy Drug use: none - Family History Father Living Status: Hx Family Cardiac Disorders: Yes Hx Family Cancer: Yes Mother Living Status: Hx Family Cardiac Disorders: Yes Medications and Allergies Aspirin 81 mg PO DAILY 11/30/16 [History] Losartan/HCTZ [Hyzaar 50-12.5 Tablet] 1 each PO DAILY 11/30/16 [History] Albuterol Sulfate [Ventolin Hfa] 2 puff IH QAM 08/02/18 [History] Calcium Carbonate [Calcium] 600 mg PO DAILY 08/02/18 [History] Cyanocobalamin (B-12) [Vitamin B12] 1,000 mcg IM Q2W 08/02/18 [History] Fluticasone Propionate Nasal [Flonase] 1 spray NS DAILY 08/02/18 [History] Potassium Gluconate [Potassium] 600 mg PO DAILY 08/02/18 [History] Vit No.129/Iron/FA [ One Daily Tablet] 1 tab PO DAILY 08/02/18 [History] Testosterone Cypionate [DEPO-Testosterone] 0.75 ml IM Q2W 08/02/18 [History] Trazodone HCl 200 mg PO HS 08/02/18 [History] hydrOXYzine HCl [Hydroxyzine HCl] 25 mg PO DAILY 08/02/18 [History] Azithromycin 250 mg PO DAILY 11/14/18 [History] FLUoxetine HCl [PROzac] 20 mg PO DAILY 11/14/18 [History] Furosemide [Lasix] 40 mg PO DAILY 11/14/18 [History] Oxycodone HCl [Roxybond] 5 mg PO Q6H PRN 11/14/18 [History] Allergy/AdvReac Type Severity Reaction Status Date / Time Sulfa (Sulfonamide Allergy Mild Hives Verified 11/14/18 11:53 Antibiotics) tetracycline [Tetracycline] Allergy Mild Hives Verified 11/14/18 11:53 escitalopram [From Lexapro] AdvReac HALUCINATIO Verified 11/14/18 11:53 N Iodinated Contrast- Oral and AdvReac Rash Verified 11/14/18 11:53 IV Dye [Iodinated Contrast Media - IV Dye] venlafaxine [From Effexor] AdvReac Hallucinati Verified 11/14/18 11:53 ng All Systems Review: The remainder of the systems were reviewed and are negative Exam Vital Signs, Last 4 Hours Temp Pulse Resp BP Pulse Ox 11/14/18 14:29 98.1 F 87 15 142/89 94 11/14/18 13:34 92 16 149/95 94 General: Present: Conversant, No Apparent Distress, Well developed, Well nourished, Other (Obese white male) HEENT: Present: Atraumatic, Normocephaly, Trachea midline Neck: Absent: JVD, Midline deformity, Tracheal deviation Neuro: Present: Alert and responsive, No focal deficits noted, Cranial nerves grossly intact, Motor nerves grossly intact, Sensory nerves grossly intact Abdomen: Present: Soft, Non-tender Vascular: Present: Normal capillary refill, Pulse, normal, Edema (Patient has edema of the left upper extremity with the maximum amount of edema in the area above and at the left antecubital region. This is nontender. There is no signs of cellulitis or lymphangitis. There is no necrotic tissue nor are there any surrounding blebs.In the left lower extremity has edema of the left calf. This is an nonpitting nontender process. Again there is no signs of cellulitis or lymphangitis or wounds.), Color/Temperature (Feet and hands are warm and pink). Absent: Clubbing, Cyanosis Skin: Present: No rashes noted on visualized skin. Absent: Wound/ulcer(s) Consult Discharge Plan - Plan Referrals: Ally Borune MD [Primary Care Provider] -
[2018-11-14] MEDS ORDERED: traZODone 50 MG TABLET PO SCH (21:00)
[2018-11-14] MEDS: *HR* OxyCODONE Immed Rel 5 MG TABLET PO PRN (21:02)
[2018-11-15] MEDS: *HR* OxyCODONE Immed Rel 5 MG TABLET PO PRN ×2 (02:59→09:19)
[2018-11-15] MEDS: Heparin 25,000 UNIT/500 ML D5W 25,000 UNIT/500 ML BAG IVC SCH (04:39)
[2018-11-15 06:28] LABS: Hematocrit 43.7 % (37.5-50.1); Mean Corpuscular HGB Conc 33.2 g/dL (31.6-35.5); Mean Corpuscular Hemoglobin 33.1 pg (28.0-33.3); Mean Corpuscular Volume 99.8 fL (83.0-100.0); Platelet Count 157 K/mcL (140-400); Red Blood Count 4.38 M/mcL (4.19-5.50); Red Cell Distribution Width 12.8 % (11.5-14.5)
[2018-11-15 06:36] LABS: BUN/Creatinine Ratio 9 (6-26); Blood Urea Nitrogen 7 mg/dL (8-23); Calcium 7.8 mg/dL (8.6-10.3); Carbon Dioxide 27 mEq/L (23-29); Chloride 106 mEq/L (98-107); Glucose 109 mg/dL (70-105); Osmolality,Calculated 285 (280-300); Potassium 3.5 mEq/L (3.5-5.1); Sodium 138 mEq/L (136-145); eGFR For Non-African Americans > 60 (> 60)
[2018-11-15 06:39] LABS: Hemoglobin 14.5 g/dL (12.9-16.9)
[2018-11-15 07:26] VITALS: BP 129/78
[2018-11-15] MEDS ORDERED: FLUoxetine 20 MG CAPSULE PO SCH (09:00)
[2018-11-15] MEDS ORDERED: Furosemide 40 MG TABLET PO SCH (09:00)
[2018-11-15] MEDS ORDERED: Fluticasone Propionate Nasal 50 MCG/SPRAY BOTTLE NS SCH (09:00)
[2018-11-15] MEDS ORDERED: Aspirin 81 MG TAB.CHEW PO SCH (09:00)
[2018-11-15] MEDS ORDERED: Losartan/HCTZ 50-12.5 TABLET PO SCH (09:00)
--- NOTE | 2018-11-15 10:50 | Discharge Summary ---
- NOTES TO OUTPATIENT PROVIDER Notes to Outpatient Provider: Patient was admitted for left upper limb superficial venous thrombosis and left lower extremity DVT. Was briefly on heparin gtt and transitioned to PO eliquis. Given his positive family history of clotting disorder, he would benefit from outpatient hematology follow up; oneyda kyle was contacted during his stay and will schedule his outpatient appointment. He was also advised to stop testosterone. Orders not resulted at time of discharge: Pending orders 11/16/18 06:40 Heparin anti-factor XA UFH [COAG] Timed Date of Encounter: 11/15/18 Time of Encounter: 08:15 - Discharge Diagnosis (1) Deep vein thrombosis (DVT) of left lower extremity Priority: Primary Status: Acute Qualifiers: Affected thrombotic vein of extremity: tibial Chronicity: acute Qualified Code(s): I82.442 - Acute embolism and thrombosis of left tibial vein (2) HTN (hypertension) Priority: Secondary Status: Chronic Qualifiers: Hypertension type: essential hypertension Qualified Code(s): I10 - Essential (primary) hypertension (3) COPD (chronic obstructive pulmonary disease) Priority: Secondary Status: Chronic Qualifiers: COPD type: unspecified COPD Qualified Code(s): J44.9 - Chronic obstructive pulmonary disease, unspecified (4) Smoker Priority: Secondary Status: Acute (5) Superficial thrombophlebitis of left upper extremity Priority: Secondary Status: Acute Hospital course: Mr. Mccullough is a 68 year old male who was admitted for left upper limb superficial venous thrombosis and left lower extremity DVT. Appears to be unprovoked as his lumbar op was > 3 months ago and he was fairly mobile prior to the presentation.Was briefly on heparin gtt and transitioned to PO eliquis. Given his positive family history of clotting disorder, he would benefit from outpatient hematology follow up; hematology was contacted during his stay and will schedule his outpatient appointment. He was also advised to stop testosterone. 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 consultant - Time Spent with Patient Total time spent providing and/or coordinating discharge services: 25 mins - Discharge Medications Prescriptions: Apixaban [Eliquis] 10 mg PO BID 28 Days #70 tablet Home Medications: Aspirin 81 mg PO DAILY 11/30/16 [History] Losartan/HCTZ [Hyzaar 50-12.5 Tablet] 1 each PO DAILY 01/03/17 [History] Albuterol Sulfate [Ventolin Hfa] 2 puff IH QAM 08/02/18 [History] Calcium Carbonate [Calcium] 600 mg PO DAILY 08/02/18 [History] Cyanocobalamin (B-12) [Vitamin B12] 1,000 mcg IM Q2W 08/02/18 [History] Fluticasone Propionate Nasal [Flonase] 1 spray NS DAILY 08/02/18 [History] Potassium Gluconate [Potassium] 600 mg PO DAILY 08/02/18 [History] Vit No.129/Iron/FA [ One Daily Tablet] 1 tab PO DAILY 08/02/18 [History] Trazodone HCl 200 mg PO HS 08/02/18 [History] hydrOXYzine HCl [Hydroxyzine HCl] 25 mg PO DAILY 08/02/18 [History] FLUoxetine HCl [Prozac] 20 mg PO DAILY 11/14/18 [History] Furosemide [Lasix] 40 mg PO DAILY 11/14/18 [History] Oxycodone HCl [Roxybond] 5 mg PO Q6H PRN 11/14/18 [History] Apixaban [Eliquis] 10 mg PO BID 28 Days #70 tablet 11/15/18 [Rx] Allergies/Adverse Reactions: Allergy/AdvReac Type Severity Reaction Status Date / Time Sulfa (Sulfonamide Allergy Mild Hives Verified 11/14/18 11:53 Antibiotics) tetracycline [Tetracycline] Allergy Mild Hives Verified 11/14/18 11:53 escitalopram [From Lexapro] AdvReac HALUCINATIO Verified 11/14/18 11:53 N Iodinated Contrast- Oral and AdvReac Rash Verified 11/14/18 11:53 IV Dye [Iodinated Contrast Media - IV Dye] venlafaxine [From Effexor] AdvReac Hallucinati Verified 11/14/18 11:53 ng Date of admission: 11/14/18 13:22 Primary care physician: Ally Bourne MD Consults: 11/14/18 13:12 Consult to Vascular Surgery [CONS] Stat Consulting Provider: Vascular Surgery Veda Reason for Consult: DVt LLE Time Notified: 13:12 Call Completed: Yes - Constitutional Vitals: Temp Pulse Resp BP Pulse Ox 97.8 F 55 16 129/78 95 11/15/18 07:14 11/15/18 07:14 11/15/18 07:14 11/15/18 07:14 11/15/18 07:14 Exam: General: Alert and oriented, not in acute distress. Cardiovascular:Normal S1 & S2, No JVD. Pulse regular. Lungs: clear to auscultation, no wheezes/rales Abdomen:Soft, non-tender, no rigidity. Extremities: LUE swelling noted, more prominent on medial aspect associated with areas of erythema, non-tender. L calf also slightly more swollen than the right. Neurological:Normal cognition and motor skills. Non-focal - Patient Status Disposition: Home, Self-Care Condition: Fair Overall status at discharge: patient is progressing back to baseline - Discharge Instructions Instructions: Deep Venous Thrombosis (DC) Follow Up With: Ally Bourne MD [Primary Care Provider] - Radha Huang CNP [Advanced Practice Nurse] - Additional Instructions: started on eliquis, 10mg BID for 7 days followed by 5mg BID thereafter Follow up with hematology as outpatient - Diet and Activity Activity: resume usual activities as tolerated Diet: regular diet
--- NOTE | 2018-11-16 18:36 | Electrocardiograph Report ---
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
== END 2018-11-15 14:32 | disposition home or self-care (01) ==
LOC: 3ANU 11:32 → EMEROOARM 11:32 → SUATTDRO 13:22 → 3ANU 14:13
PROVIDERS: ADMIT Student in an Organized Health Care Education/Training Program; ATTEND Internal Medicine